=== PATIENT | female | born 1985 | race Caucasian/White ===

== ENCOUNTER 2016-09-08 21:31 | Emergency (ER) | payer MEDICAID ==
[~2016-09-08 21:31] MED LIST: DEMEROL 50 M50 MG/ML OR; FERROUS SULFAT325 MG PO; GLUCOPHAGE500 MG PO; IMODIUM A-D2 MG; KEFLEX500 MG PO; MOTRIN600 MG PO; PHENERGAN25 M1; PRENATAL COMPLE1 TAB PO
[2016-09-08 22:15] LABS: APPEARANCE CLEAR (CLEAR); BILIRUBIN NEGATIVE (NEGATIVE); COLOR YELLOW (YELLOW); GLUCOSE NEGATIVE (NEGATIVE); KETONE NEGATIVE (NEGATIVE); LEUKOCYTE ESTERASE 1+ (NEGATIVE); NITRITE NEGATIVE (NEGATIVE); PROTEIN TRACE mg/dL (NEGATIVE); SPECIFIC GRAVITY 1.025 (1.005-1.020); UROBILINOGEN NORMAL (NORMAL)
[2016-09-08 22:17] LABS: BACTERIA MODERATE /hpf (NONE SEEN); EPITHELIAL CELLS 0-5 /hpf (0-5)
[2016-09-08 22:18] LABS: MUCUS <1+ /lpf (NONE SEEN)
[2016-09-08 22:50] LABS: BASOPHILS 0.2 % (0-2); EOSINOPHILS 1.8 % (0-7); HEMATOCRIT 38.1 % (36.0-48.0); HEMOGLOBIN 12.1 g/dL (12-16); IMMATURE GRANULOCYTES 0.3 % (0-5); MCH 24.9 pg (26.0-34.0); MCHC 31.8 g/dL (31.0-37.0); MCV 78.4 fL (80.0-100.0); MEAN PLATELET VOLUME 9.9 fL (7.4-10.4); MONOCYTES 3.4 % (2-11); NEUTROPHILS 64.3 % (40-80); PLATELET COUNT 351 10x3/uL (130-400); RBC 4.86 10x6/uL (4.00-5.40); RDW 16.2 % (11.5-14.5); WBC 10.7 10x3/uL (4.8-10.8)
[2016-09-08 22:58] LABS: HCG SERUM NEGATIVE (NEGATIVE)
[2016-09-08 23:05] LABS: ALKALINE PHOSPHATASE 88 U/L (46-116); ALT (SGPT) 30 U/L (10-68); BILIRUBIN - TOTAL 0.14 mg/dL (0.2-1.3); CALC OSMOLALITY 282 mosm/kg (275-300); CALCIUM 8.5 mg/dL (8.5-10.1); CARBON DIOXIDE 24.2 mmol/L (21.0-32.0); CHLORIDE - SERUM 108 mmol/L (98-107); CREATININE - SERUM 0.8 mg/dL (0.6-1.3); GLUCOSE 113 mg/dL (74-106); POTASSIUM - SERUM 3.2 mmol/L (3.5-5.1); PROTEIN - SERUM 6.9 g/dL (6.4-8.2); SODIUM 142 mmol/L (136-145); UREA NITROGEN 10 mg/dL (7-18); eGFR NON AFRICAN AMERICAN 89 mL/min (90-120)
== END 2016-09-09 00:50 | disposition home or self-care (01) ==
LOC: D.ER 21:31
PROVIDERS: Emergency Medicine
DX: R10.9 Unspecified abdominal pain (principal); N39.0 Urinary tract infection, site not specified; Z87.442 Personal history of urinary calculi; F17.200 Nicotine dependence, unspecified, uncomplicated

== ENCOUNTER → 2016-12-17 08:49 | Outpatient (CLI) | payer MEDICAID | END | disposition home or self-care (01) | LOC: D.MRI 12-15 09:00 | DX: R26.9 Unspecified abnormalities of gait and mobility (principal); R42 Dizziness and giddiness; R41.3 Other amnesia ==

== ENCOUNTER 2017-01-18 00:24 | Emergency (ER) | payer MEDICAID ==
[2017-01-18 00:56] LABS: APPEARANCE CLEAR (CLEAR); BACTERIA NONE SEEN /hpf (NONE SEEN); BILIRUBIN NEGATIVE (NEGATIVE); COLOR YELLOW (YELLOW); EPITHELIAL CELLS 0-5 /hpf (0-5); GLUCOSE NEGATIVE (NEGATIVE); KETONE NEGATIVE (NEGATIVE); NITRITE NEGATIVE (NEGATIVE); PROTEIN TRACE mg/dL (NEGATIVE); SPECIFIC GRAVITY 1.015 (1.005-1.020); UROBILINOGEN NORMAL (NORMAL); WHITE CELLS - URINE NSEEN /hpf (0-5)
== END 2017-01-18 01:11 | disposition home or self-care (01) ==
LOC: D.ER 00:24
PROVIDERS: Emergency Medicine
DX: R10.9 Unspecified abdominal pain (principal); Z87.442 Personal history of urinary calculi; F17.200 Nicotine dependence, unspecified, uncomplicated

== ENCOUNTER 2017-01-29 23:13 | Emergency (ER) | payer MEDICAID ==
[2017-01-29 23:33] LABS: APPEARANCE CLEAR (CLEAR); BACTERIA NONE SEEN /hpf (NONE SEEN); BILIRUBIN NEGATIVE (NEGATIVE); COLOR YELLOW (YELLOW); EPITHELIAL CELLS RARE /hpf (0-5); GLUCOSE NEGATIVE (NEGATIVE); KETONE NEGATIVE (NEGATIVE); NITRITE NEGATIVE (NEGATIVE); PROTEIN TRACE mg/dL (NEGATIVE); RED CELLS - URINE 0-5 /hpf (0-5); SPECIFIC GRAVITY 1.015 (1.005-1.020); UROBILINOGEN NORMAL (NORMAL); WHITE CELLS - URINE RARE /hpf (0-5)
== END 2017-01-30 00:16 | disposition home or self-care (01) ==
LOC: D.ER 23:13
PROVIDERS: Emergency Medicine
DX: N23 Unspecified renal colic (principal); Z87.442 Personal history of urinary calculi

== ENCOUNTER 2017-02-13 23:47 | Emergency (ER) | payer MEDICAID ==
[2017-02-14 00:18] LABS: APPEARANCE CLEAR (CLEAR); BILIRUBIN NEGATIVE (NEGATIVE); COLOR YELLOW (YELLOW); GLUCOSE NEGATIVE (NEGATIVE); KETONE NEGATIVE (NEGATIVE); NITRITE NEGATIVE (NEGATIVE); PROTEIN NEGATIVE (NEGATIVE); UROBILINOGEN NORMAL (NORMAL)
== END 2017-02-14 01:40 | disposition home or self-care (01) ==
LOC: D.ER 23:47
PROVIDERS: Emergency Medicine
DX: N23 Unspecified renal colic (principal); F17.200 Nicotine dependence, unspecified, uncomplicated

== ENCOUNTER → 2017-02-23 11:22 | Outpatient (CLI) | payer MEDICAID | END | disposition home or self-care (01) | LOC: D.NM 11:22 | DX: R10.13 Epigastric pain (principal); R11.2 Nausea with vomiting, unspecified ==

== ENCOUNTER 2018-03-31 23:44 | Emergency (ER) | payer BC ==
[~2018-03-31] VITALS: Ht 165.1 cm; Wt 122.7 kg
[2018-03-31 23:55] VITALS: Ht 165.1 cm; Wt 122.7 kg
[2018-03-31] MEDS ORDERED: TORADOL10 MG PO (23:55)
[2018-03-31] MEDS ORDERED: ZOFRAN4 MG (23:55)
[2018-04-01 00:25] LABS: APPEARANCE CLEAR (CLEAR); BILIRUBIN NEGATIVE (NEGATIVE); COLOR YELLOW (YELLOW); GLUCOSE NEGATIVE (NEGATIVE); HCG URINE NEGATIVE (NEGATIVE); KETONE NEGATIVE (NEGATIVE); NITRITE NEGATIVE (NEGATIVE); PROTEIN NEGATIVE (NEGATIVE); UROBILINOGEN NORMAL (NORMAL)
[2018-04-01 00:38] LABS: BASOPHILS 0.3 % (0-2); EOSINOPHILS 2.9 % (0-7); HEMATOCRIT 37.2 % (36.0-48.0); IMMATURE GRANULOCYTES 0.2 % (0-5); MCH 23.2 pg (26.0-34.0); MCHC 32.3 g/dL (31.0-37.0); MEAN PLATELET VOLUME 10.1 fL (7.4-10.4); MONOCYTES 5.6 % (2-11); PLATELET COUNT 329 10x3/uL (130-400); RBC 5.17 10x6/uL (4.00-5.40); RDW 15.9 % (11.5-14.5); WBC 13.3 10x3/uL (4.8-10.8)
[2018-04-01 00:48] LABS: ALBUMIN 3.3 g/dL (3.4-5.0); ALKALINE PHOSPHATASE 108 U/L (46-116); ALT (SGPT) 37 U/L (10-68); BILIRUBIN - TOTAL 0.15 mg/dL (0.2-1.3); CALC OSMOLALITY 276 mosm/kg (275-300); CALCIUM 8.7 mg/dL (8.5-10.1); CARBON DIOXIDE 23.2 mmol/L (21.0-32.0); CHLORIDE - SERUM 102 mmol/L (98-107); CREATININE - SERUM 0.8 mg/dL (0.6-1.3); GLUCOSE 110 mg/dL (74-106); POTASSIUM - SERUM 3.5 mmol/L (3.5-5.1); PROTEIN - SERUM 7.5 g/dL (6.4-8.2); SODIUM 139 mmol/L (136-145); UREA NITROGEN 7 mg/dL (7-18); eGFR NON AFRICAN AMERICAN 89 mL/min (90-120)
[2018-04-01 00:51] LABS: AMYLASE - SERUM 30 U/L (25-115); LIPASE 162 U/L (73-393)
[2018-04-01 00:54] LABS: TROPONIN-I < 0.017 ng/mL (0.000-0.060)
[2018-04-01] MEDS ORDERED: LEVSIN/ANASP0.125 MG PO (03:06)
[2018-04-01] MEDS ORDERED: FLORASTOR250 MG PO (03:06)
[2018-04-01] MEDS ORDERED: FLOMAX0.4 MG PO (03:16)
[2018-04-01] MEDS ORDERED: HYDROCODON-ACE1 EA10 PO (03:16)
[2018-04-01] MEDS ORDERED: ZOFRAN ODT4 MG/UDTAB PO (03:16)
[2018-04-01 03:29] VITALS: BP 149/93
== END 2018-04-01 03:29 | disposition home or self-care (01) ==
LOC: D.ER 23:44
PROVIDERS: Family Medicine
DX: R10.9 Unspecified abdominal pain (principal); D72.829 Elevated white blood cell count, unspecified; N20.0 Calculus of kidney; J44.9 Chronic obstructive pulmonary disease, unspecified; F17.200 Nicotine dependence, unspecified, uncomplicated

== ENCOUNTER 2019-01-12 19:50 | Emergency (ER) | payer BC ==
[~2019-01-12] VITALS: Ht 165.1 cm; Wt 130.9 kg
[~2019-01-12 19:50] MED LIST changes: +FLOMAX0.4 MG PO; +FLORASTOR250 MG PO; +HYDROCODON-ACE1 EA10 PO; +LEVSIN/ANASP0.125 MG PO; +TORADOL10 MG PO; +ZOFRAN ODT4 MG/UDTAB PO; +ZOFRAN4 MG
[2019-01-12 20:10] VITALS: Ht 165.1 cm; Wt 130.9 kg
[2019-01-12 20:32] LABS: BASOPHILS 0.2 % (0-2); EOSINOPHILS 1.7 % (0-7); HEMATOCRIT 34.2 % (36.0-48.0); HEMOGLOBIN 10.4 g/dL (12-16); IMMATURE GRANULOCYTES 0.3 % (0-5); MCH 21.6 pg (26.0-34.0); MCHC 30.4 g/dL (31.0-37.0); MCV 71.1 fL (80.0-100.0); MEAN PLATELET VOLUME 9.8 fL (7.4-10.4); MONOCYTES 4.5 % (2-11); NEUTROPHILS 66.3 % (40-80); PLATELET COUNT 323 10x3/uL (130-400); RBC 4.81 10x6/uL (4.00-5.40); RDW 17.2 % (11.5-14.5); WBC 11.2 10x3/uL (4.8-10.8)
[2019-01-12 20:35] LABS: APPEARANCE CLEAR (CLEAR); BILIRUBIN NEGATIVE (NEGATIVE); COLOR STRAW (YELLOW); GLUCOSE NEGATIVE (NEGATIVE); KETONE NEGATIVE (NEGATIVE); NITRITE NEGATIVE (NEGATIVE); PROTEIN NEGATIVE (NEGATIVE); UROBILINOGEN NORMAL (NORMAL)
[2019-01-12 20:39] LABS: CALC OSMOLALITY 279 mosm/kg (275-300); CALCIUM 7.9 mg/dL (8.5-10.1); CARBON DIOXIDE 28.4 mmol/L (21.0-32.0); CHLORIDE - SERUM 104 mmol/L (98-107); CREATININE - SERUM 0.8 mg/dL (0.6-1.3); GLUCOSE 95 mg/dL (74-106); POTASSIUM - SERUM 3.1 mmol/L (3.5-5.1); SODIUM 141 mmol/L (136-145); UREA NITROGEN 10 mg/dL (7-18); eGFR NON AFRICAN AMERICAN 88 mL/min (90-120)
[2019-01-12 20:42] LABS: HCG URINE NEGATIVE (NEGATIVE)
[2019-01-12 20:49] LABS: ALKALINE PHOSPHATASE 98 U/L (46-116); ALT (SGPT) 30 U/L (10-68); AMYLASE - SERUM 31 U/L (25-115); BILIRUBIN - TOTAL 0.14 mg/dL (0.2-1.3); LIPASE 143 U/L (73-393); PROTEIN - SERUM 7.1 g/dL (6.4-8.2); TROPONIN-I < 0.017 ng/mL (0.000-0.060)
[2019-01-13 00:36] VITALS: BP 132/75
== END 2019-01-13 00:37 | disposition home or self-care (01) ==
LOC: D.ER 19:50
PROVIDERS: Family Medicine
DX: R10.12 Left upper quadrant pain (principal); J44.9 Chronic obstructive pulmonary disease, unspecified; Z72.0 Tobacco use; Z87.442 Personal history of urinary calculi

== ENCOUNTER 2019-03-30 20:48 | Emergency (ER) | payer BC ==
[~2019-03-30] VITALS: Ht 165.1 cm; Wt 125.0 kg
[2019-03-30 20:56] VITALS: Ht 165.1 cm; Wt 125.0 kg
[2019-03-30 21:32] LABS: APPEARANCE CLEAR (CLEAR); BILIRUBIN NEGATIVE (NEGATIVE); COLOR YELLOW (YELLOW); GLUCOSE NEGATIVE (NEGATIVE); KETONE NEGATIVE (NEGATIVE); NITRITE NEGATIVE (NEGATIVE); PROTEIN NEGATIVE (NEGATIVE); UROBILINOGEN NORMAL (NORMAL)
[2019-03-30 21:39] LABS: BASOPHILS 0.1 % (0-2); EOSINOPHILS 1.3 % (0-7); HEMATOCRIT 37.5 % (36.0-48.0); HEMOGLOBIN 11.7 g/dL (12-16); IMMATURE GRANULOCYTES 0.3 % (0-5); LYMPHOCYTES 25.1 % (15-50); MCH 21.7 pg (26.0-34.0); MCHC 31.2 g/dL (31.0-37.0); MCV 69.4 fL (80.0-100.0); MEAN PLATELET VOLUME 9.6 fL (7.4-10.4); MONOCYTES 4.5 % (2-11); NEUTROPHILS 68.7 % (40-80); PLATELET COUNT 358 10x3/uL (130-400); RDW 17.4 % (11.5-14.5); WBC 14.9 10x3/uL (4.8-10.8)
[2019-03-30 21:50] LABS: CALC OSMOLALITY 270 mosm/kg (275-300); CALCIUM 8.4 mg/dL (8.5-10.1); CARBON DIOXIDE 28.9 mmol/L (21.0-32.0); CHLORIDE - SERUM 100 mmol/L (98-107); CREATININE - SERUM 0.7 mg/dL (0.6-1.3); GLUCOSE 118 mg/dL (74-106); POTASSIUM - SERUM 3.8 mmol/L (3.5-5.1); SODIUM 135 mmol/L (136-145); UREA NITROGEN 12 mg/dL (7-18); eGFR NON AFRICAN AMERICAN > 90 mL/min (90-120)
[2019-03-30 21:54] LABS: HCG SERUM NEGATIVE (NEGATIVE)
[2019-03-30 21:56] LABS: ALBUMIN 3.2 g/dL (3.4-5.0); ALKALINE PHOSPHATASE 97 U/L (30-120); ALT (SGPT) 20 U/L (10-68); BILIRUBIN - TOTAL 0.14 mg/dL (0.2-1.3); PROTEIN - SERUM 7.3 g/dL (6.4-8.2)
[2019-03-30] MEDS ORDERED: ZOFRAN ODT4 MG/UDTAB PO (23:58)
[2019-03-31 00:10] VITALS: BP 147/97
== END 2019-03-31 00:10 | disposition home or self-care (01) ==
LOC: D.ER 20:48
PROVIDERS: Emergency Medicine
DX: R10.30 Lower abdominal pain, unspecified (principal)